=== PATIENT | male | born 1975 | race Caucasian/White ===

== ENCOUNTER → 2021-06-04 | Outpatient (CLI) | payer MEDICAID ==
--- NOTE | 2021-06-04 16:24 | EST ---
EXERCISE STRESS DATE OF SERVICE: 06/04/21 AGE: 45 SEX: M HT: 5'7" WT: 220 lbs. PROTOCOL: Booker STAGE: 3 DURATION OF EXERCISE: 9:00 HEART RATE REST: 81 BLOOD PRESSURE REST: 138/98 MAXIMUM HEART RATE ACHIEVED: 157 MAXIMUM BLOOD PRESSURE: 211/84 85% MPHR: 149 100% MPHR: 175 METS: 10.5 INDICATIONS: Abnormal EKG. CLINICAL INFORMATION: Baseline rhythm is a sinus mechanism, rate of 81, normal axis, intervals, nonspecific ST-T wave changes. Baseline blood pressure 138/98 mmHg. The patient excess Booker protocol for 9 minutes reaching peak rate of 157 beats per minute which is equal to 90% maximum predicted heart rate. Peak blood pressure 211/84 mmHg. Test was terminated secondary to augite. There was no chest pain. Electrocardiograph monitoring revealed no evidence of diagnostic ischemic ST deviation. CONCLUSION: 1. Average exercise tolerance with no chest discomfort. 2. Nondiagnostic electrocardiograph stress testing secondary to baseline EKG abnormality. 3. If clinically indicated, an imaging stress test will be helpful. MMODL / IJN: [id number] /
== END | disposition home or self-care (01) ==
LOC: RADNMMAIN 08:20
PROVIDERS: ATTEND Physician Assistant Medical
DX: R94.31 Abnormal electrocardiogram [ECG] [EKG] (principal)
CPT/HCPCS: 93017